=== PATIENT | male | born 1995 | race Caucasian/White ===

== ENCOUNTER 2022-01-23 10:03 | Emergency (ER) | payer OTHER ==
[2022-01-23 10:48] VITALS: BP 107/67; PULSE 67; RESP 17; TEMP 98.4; BMI 25.0
[2022-01-23] MEDS ORDERED: BACITRACIN 15 GM TUBE TOPICAL OINTMENT ONE (11:52)
[2022-01-23] MEDS ORDERED: BACITRACIN 15 GM TUBE TOPICAL OINTMENT TP ONE (12:09)
[2022-01-23] MEDS ORDERED: IBUPROFEN 600 MG TABLET (FP) PO ONE ×2 (12:12→12:14)
== END 2022-01-23 13:23 | disposition home or self-care (01) ==
LOC: JER 10:03 → JERFT 10:03
DX: S50.811A Abrasion of right forearm, initial encounter (principal); S80.211A Abrasion, right knee, initial encounter; S70.211A Abrasion, right hip, initial encounter; V00.141A Fall from scooter (nonmotorized), initial encounter
CPT/HCPCS: 73060-TC-RT-FY; 73070-TC-RT-FY; 73090-TC-RT-FY; 73564-TC-RT-FY; 99284-25